=== PATIENT | male | born 1950 | race Caucasian/White ===

== ENCOUNTER 2021-12-11 15:55 | Observation (INO) | payer MEDICARE, BC ==
[2021-12-11] MEDS ORDERED: ASPIRIN 81 MG PO STA (16:02)
--- NOTE | 2021-12-11 16:15 | ED ---
General Adult HPI - General Chief complaint: Shortness of Breath Stated complaint: SOB Time Seen by Provider: 12/11/21 15:57 Source: patient, EMS, RN notes reviewed Mode of arrival: EMS Limitations: no limitations - History of Present Illness Initial comments: Patient is a pleasant 71-year-old male presenting to the emergency department with difficulty breathing. Patient is a poor historian. Patient does have history of COPD. Patient has had increased dyspnea over the past several days. Patient did test +2 days ago for COVID-19 infection. Patient has mild cough. Dyspnea does worsen with exertion. No leg pain or leg swelling. No chest pain. EMS did find patient in a flutter with a heart rate of 192 in route. Patient denies any history of arrhythmia. - Related Data Allergies Allergy/AdvReac Type Severity Reaction Status Date / Time fentanyl AdvReac Itching Verified 12/11/21 16:05 Review of Systems ROS Statement: Those systems with pertinent positive or pertinent negative responses have been documented in the HPI. ROS Other: All systems not noted in ROS Statement are negative. Constitutional: Reports: chills Eyes: Denies: eye pain ENT: Denies: ear pain Respiratory: Reports: cough, dyspnea Cardiovascular: Denies: chest pain Endocrine: Reports: fatigue Gastrointestinal: Reports: diarrhea. Denies: abdominal pain Genitourinary: Denies: dysuria Musculoskeletal: Denies: back pain Skin: Denies: rash Neurological: Denies: weakness Past Medical History Past Medical History: COPD, Diabetes Mellitus, Hyperlipidemia, Hypertension Past Surgical History: Unable to Obtain Smoking Status: Former smoker Past Alcohol Use History: Occasional Past Drug Use History: None Reported General Exam Limitations: no limitations General appearance: alert, in no apparent distress Head exam: Present: normocephalic Eye exam: Present: normal appearance Neck exam: Present: normal inspection Respiratory exam: Present: normal lung sounds bilaterally Cardiovascular Exam: Present: regular rate, normal rhythm GI/Abdominal exam: Present: soft. Absent: tenderness Extremities exam: Present: normal inspection. Absent: pedal edema, calf tenderness Neurological exam: Present: alert Psychiatric exam: Present: normal affect, normal mood Skin exam: Present: normal color Course Vital Signs 12/11/21 12/11/21 16:02 16:05 Temperature 97.9 F Pulse Rate 96 Respiratory 22 Rate Blood Pressure 113/53 O2 Sat by Pulse 93 L 95 Oximetry EKG Findings - EKG Comments: EKG Findings:: Sinus rhythm with rate of 89. [place] 155. QRS 90. QT 341. QTc 388. Normal axis. Normal QRS. No acute ST change. Medical Decision Making - Medical Decision Making Charles reevaluated and updated. Case discussed with Dr. Robles, who will admit co vering Dr. Huddleston. Cardiology will be placed on consult for dysrhythmia. Family requests repeat covert test - Lab Data Result diagrams: 12/11/21 16:07 12/11/21 16:07 Lab Results 12/11/21 12/11/21 12/11/21 Range/Units 16:07 16:07 16:07 WBC 7.6 (3.8-10.6) k/uL RBC 4.33 (4.30-5.90) m/uL Hgb 13.3 (13.0-17.5) gm/dL Hct 40.3 (39.0-53.0) % MCV 92.9 (80.0-100.0) fL MCH 30.8 (25.0-35.0) pg MCHC 33.1 (31.0-37.0) g/dL RDW 12.4 (11.5-15.5) % Plt Count 200 (150-450) k/uL MPV 7.7 Neutrophils % 80 % Lymphocytes % 9 % Monocytes % 6 % Eosinophils % 3 % Basophils % 0 % Neutrophils # 6.1 (1.3-7.7) k/uL Lymphocytes # 0.7 L (1.0-4.8) k/uL Monocytes # 0.5 (0-1.0) k/uL Eosinophils # 0.2 (0-0.7) k/uL Basophils # 0.0 (0-0.2) k/uL PT 10.5 (9.0-12.0) sec INR 1.0 (<1.2) APTT 21.3 L (22.0-30.0) sec Sodium 135 L (137-145) mmol/L Potassium 4.6 (3.5-5.1) mmol/L Chloride 105 (98-107) mmol/L Carbon Dioxide 17 L (22-30) mmol/L Anion Gap 13 mmol/L BUN 36 H (9-20) mg/dL Creatinine 1.65 H (0.66-1.25) mg/dL Est GFR (CKD-EPI)AfAm 48 (>60 ml/min/1.73 sqM) Est GFR (CKD-EPI)NonAf 41 (>60 ml/min/1.73 sqM) Glucose 245 H (74-99) mg/dL Plasma Lactic Acid [place] (0.7-2.0) mmol/L Calcium 9.1 (8.4-10.2) mg/dL Magnesium 1.5 L (1.6-2.3) mg/dL Total Bilirubin 0.8 (0.2-1.3) mg/dL AST 22 (17-59) U/L ALT 24 (4-49) U/L Alkaline Phosphatase 80 (38-126) U/L Lactate Dehydrogenase 440 (313-618) U/L Troponin I (0.000-0.034) ng/mL C-Reactive Protein 2.7 H (<1.0) mg/dL Total Protein 5.8 L (6.3-8.2) g/dL Albumin 3.2 L (3.5-5.0) g/dL TSH 0.699 (0.465-4.680) mIU/L Free T4 1.52 (0.78-2.19) ng/dL Free T3 pg/mL 3.8 (2.8-5.3) pg/ml 12/11/21 12/11/21 Range/Units 16:07 16:07 WBC (3.8-10.6) k/uL RBC (4.30-5.90) m/uL Hgb (13.0-17.5) gm/dL Hct (39.0-53.0) % MCV (80.0-100.0) fL MCH (25.0-35.0) pg MCHC (31.0-37.0) g/dL RDW (11.5-15.5) % Plt Count (150-450) k/uL MPV Neutrophils % % Lymphocytes % % Monocytes % % Eosinophils % % Basophils % % Neutrophils # (1.3-7.7) k/uL Lymphocytes # (1.0-4.8) k/uL Monocytes # (0-1.0) k/uL Eosinophils # (0-0.7) k/uL Basophils # (0-0.2) k/uL PT (9.0-12.0) sec INR (<1.2) APTT (22.0-30.0) sec Sodium (137-145) mmol/L Potassium (3.5-5.1) mmol/L Chloride (98-107) mmol/L Carbon Dioxide (22-30) mmol/L Anion Gap mmol/L BUN (9-20) mg/dL Creatinine (0.66-1.25) mg/dL Est GFR (CKD-EPI)AfAm (>60 ml/min/1.73 sqM) Est GFR (CKD-EPI)NonAf (>60 ml/min/1.73 sqM) Glucose (74-99) mg/dL Plasma Lactic Acid [place] 1.9 (0.7-2.0) mmol/L Calcium (8.4-10.2) mg/dL Magnesium (1.6-2.3) mg/dL Total Bilirubin (0.2-1.3) mg/dL AST (17-59) U/L ALT (4-49) U/L Alkaline Phosphatase (38-126) U/L Lactate Dehydrogenase (313-618) U/L Troponin I <0.012 (0.000-0.034) ng/mL C-Reactive Protein (<1.0) mg/dL Total Protein (6.3-8.2) g/dL Albumin (3.5-5.0) g/dL TSH (0.465-4.680) mIU/L Free T4 (0.78-2.19) ng/dL Free T3 pg/mL (2.8-5.3) pg/ml - Radiology Data Radiology results: image reviewed (Chest x-ray shows interstitial prominence) Disposition Clinical Impression: COVID-19, Atrial flutter Disposition: ADMITTED IP TO THIS HOSP Is patient prescribed a controlled substance at d/c from ED?: No Referrals: Mikael eMeks MD [Primary Care Provider] - 1-2 days Time of Disposition: 17:30
[2021-12-11 16:20] LABS: Basophils % (A) 0 %; Eosinophils # (A) 0.2 k/uL (0-0.7); Eosinophils % (A) 3 %; HCT 40.3 % (39.0-53.0); HGB 13.3 gm/dL (13.0-17.5); Lymphocytes # (A) 0.7 k/uL (1.0-4.8); Lymphocytes % (A) 9 %; MCH 30.8 pg (25.0-35.0); MCHC 33.1 g/dL (31.0-37.0); MCV 92.9 fL (80.0-100.0); Mean Platelet Volume 7.7; Monocytes # (A) 0.5 k/uL (0-1.0); Monocytes % (A) 6 %; Neutrophils # (A) 6.1 k/uL (1.3-7.7); Neutrophils % (A) 80 %; Platelet Count 200 k/uL (150-450); RBC 4.33 m/uL (4.30-5.90); RDW 12.4 % (11.5-15.5); WBC 7.6 k/uL (3.8-10.6)
[2021-12-11 16:39] LABS: Albumin 3.2 g/dL (3.5-5.0); C Reactive Protein 2.7 mg/dL (<1.0); Calcium 9.1 mg/dL (8.4-10.2); Magnesium 1.5 mg/dL (1.6-2.3); Potassium 4.6 mmol/L (3.5-5.1); Total Bilirubin 0.8 mg/dL (0.2-1.3); Total Protein 5.8 g/dL (6.3-8.2)
[2021-12-11 16:40] LABS: Partial Thromboplastin Time 21.3 sec (22.0-30.0); Prothrombin Time 10.5 sec (9.0-12.0)
--- NOTE | 2021-12-11 16:42 | XR ---
EXAMINATION TYPE: XR chest 1V portable DATE OF EXAM: 12/11/2021 COMPARISON: NONE HISTORY: Dysrhythmia. TECHNIQUE: 2 AP portable frontal upright views of the chest are obtained. FINDINGS: There are increased interstitial markings favoring chronic parenchymal changes bilaterally . No suspicious focal consolidation, pleural effusion, or pneumothorax seen. The cardiac silhouette s ize is within normal limits. The osseous structures are intact. IMPRESSION: Interstitial prominence bilaterally favoring mild to moderate chronic parenchymal fibros is. No suspicious acute consolidation.
[2021-12-11] MEDS ORDERED: MAGNESIUM OXIDE 400 MG TAB PO STA (16:45)
[2021-12-11 16:53] LABS: T4, Free (Free Thyroxine) 1.52 ng/dL (0.78-2.19)
[2021-12-11] MEDS ORDERED: NALOXONE 0.4 MG/ML 1 ML VIAL IV PRN (17:34)
[2021-12-11] MEDS ORDERED: SODIUM CHLORIDE 0.9% 1,000 ML IV STA (17:40)
[2021-12-11] MEDS: CHOLECALCIFEROL 125 MCG (5000 IU) TABLET PO SCH (17:52)
[2021-12-11] MEDS: ZINC SULFATE 220 MG CAP PO SCH (17:52)
[2021-12-11 19:40] LABS: Glucose,Whole Blood 234 mg/dL (70-110)
[2021-12-11] MEDS ORDERED: BACLOFEN 10 MG TAB PO PRN (21:00)
[2021-12-11] MEDS: ASCORBIC ACID 500 MG TAB PO SCH (22:20)
[2021-12-11] MEDS: HYDROcodone/APAP 5-325MG 1 EACH TAB PO PRN (22:20)
[2021-12-11] MEDS: MONTELUKAST 10 MG TAB PO SCH (22:20)
[2021-12-11] MEDS: lisinopriL 20 MG TAB PO SCH (22:20)
[2021-12-11] MEDS: ATORVASTATIN 20 MG TAB PO SCH (22:20)
[2021-12-11] MEDS: INSULIN ASPART (NovoLOG) 100 UNIT/ML VIAL SQ SCH (22:21)
[2021-12-11] MEDS: TAMSULOSIN 0.4 MG CAP.ER.24H PO SCH (22:23)
[2021-12-12] MEDS: ENOXAPARIN 40 MG/0.4 ML SYRINGE SQ SCH ×2 (00:01→08:35)
[2021-12-12] MEDS: methylPREDNISolone SOD SUCCI 125 MG/2 ML VIAL IV SCH ×2 (00:01→08:35)
[2021-12-12 05:52] LABS: Glucose,Whole Blood 298 mg/dL (70-110)
[2021-12-12] MEDS: INSULIN ASPART (NovoLOG) 100 UNIT/ML VIAL SQ SCH ×4 (06:29→21:31)
[2021-12-12] MEDS: ASCORBIC ACID 500 MG TAB PO SCH ×2 (08:35→21:30)
[2021-12-12] MEDS: ZINC SULFATE 220 MG CAP PO SCH (08:35)
[2021-12-12] MEDS: LORATADINE 10 MG TAB PO SCH (08:35)
[2021-12-12] MEDS: CHOLECALCIFEROL 125 MCG (5000 IU) TABLET PO SCH (08:36)
[2021-12-12 11:01] VITALS: BMI 25.4
--- NOTE | 2021-12-12 12:17 | P.CRDCN ---
History of Present Illness Consult date: 12/12/21 History of present illness: Patient is a pleasant 71-year-old male with a known history of COPD and tachycardia. We've been asked to see him for new onset of atrial flutter with RVR. 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 Patient initially presented to the ER with increased shortness of breath, he tested positive for Covid 2 days ago. Patient was brought in by EMS which showed his EKG and atrial flutter with a ventricular rate of 192. Patient has since converted to sinus rhythm with a ventricular rate in the 60s. His troponin was negative 3. chest x-ray showed pulmonary fibrosis. He reports he had a stress test 2 years ago performed by his primary and told everything was good. Will start him on Toprol 25 mg daily L request 5 mg twice a day and discontinue the Lovenox. We'll obtain a 2-D echocardiogram. Review of Systems REVIEW OF SYSTEMS At the time of my exam: CONSTITUTIONAL: Denies fever or chills. EYES: Negative for vision changes ENT: Negative for hearing loss CARDIOVASCULAR: Denies chest pain, shortness of breath, diaphoresis, orthopnea, PND or palpitations. VASCULAR: Denies edema RESPIRATORY: Complains of shortness of breath. Denies cough. GASTROINTESTINAL: Denies abdominal pain, diarrhea, constipation, nausea or vomiting. MUSCULOSKELETAL: Denies myalgias. NEUROLOGIC: Denies numbness, tingling, headache or weakness. ENDOCRINE: Denies fatigue, weight change, polydipsia or polyurina. GENITOURINARY: Denies burning, hematuria or urgency with micturation. HEMATOLOGIC: Denies history of anemia or bleeding. DERMATOLOGY: Denies rash or skin sores PSYCH: Negative for depression or hallucinations. Past Medical History Past Medical History: COPD, Diabetes Mellitus, Hyperlipidemia, Hypertension History of Any Multi-Drug Resistant Organisms: None Reported Past Surgical History: Back Surgery, Orthopedic Surgery Past Anesthesia/Blood Transfusion Reactions: No Reported Reaction Smoking Status: Former smoker Past Alcohol Use History: Occasional Past Drug Use History: None Reported - Past Family History Father Family Medical History: Diabetes Mellitus Mother Family Medical History: Diabetes Mellitus Medications and Allergies Home Medications Medication Instructions Recorded Confirmed Type Atorvastatin [Lipitor] 20 mg PO HS 12/11/21 12/11/21 History Baclofen [Lioresal] 10 mg PO HS PRN 12/11/21 12/11/21 History Fluconazole [Diflucan] 100 mg PO DAILY 12/11/21 12/11/21 History Loratadine [Claritin] 10 mg PO DAILY 12/11/21 12/11/21 History Montelukast [Singulair] 10 mg PO HS 12/11/21 12/11/21 History Naproxen Sodium [Aleve] 220 mg PO BID PRN 12/11/21 12/11/21 History Nystatin 100,000 Unit/ml Susp 10 ml PO QID 12/11/21 12/11/21 History [Mycostatin Oral Susp] Tamsulosin [Flomax] 0.4 mg PO HS 12/11/21 12/11/21 History Umeclidinium Brm/Vilanterol Tr 1 puff INHALATION RT-DAILY 12/11/21 12/11/21 History [Anoro Ellipta 62.5-25 Mcg INH] lisinopriL [Zestril] 20 mg PO HS 12/11/21 12/11/21 History metFORMIN HCL [Glucophage] 500 mg PO HS 12/11/21 12/11/21 History Allergies Allergy/AdvReac Type Severity Reaction Status Date / Time fentanyl AdvReac Itching Verified 12/11/21 17:54 Physical Exam Vitals: Vital Signs Temp Pulse Pulse Resp BP BP Pulse Ox 12/12/21 04:00 97.6 F 55 L 18 122/57 96 12/12/21 02:00 18 12/12/21 00:00 97.7 F 61 18 113/56 98 12/11/21 22:00 97.2 F L 63 16 124/60 95 12/11/21 20:00 63 16 12/11/21 17:05 98.8 F 98 20 132/78 96 12/11/21 16:05 95 12/11/21 16:02 97.9 F 96 22 113/53 93 L Intake and Output 12/11/21 12/12/21 12/12/21 22:59 06:59 14:59 Intake Total 118 Balance 118 Intake: Oral 118 Other: Voiding Method Toilet Toilet # Voids 4 Weight 83.007 kg 85 kg PHYSICAL EXAMINATION VITAL SIGNS: Reviewed General: The patient is awake and alert, in no distress, and does not appear acutely ill. Skin: Skin is warm and dry and no rashes or lesions are noted. Eye: Pupils are equal, round and reactive to light, extra-ocular movements are intact; there is normal conjunctiva bilaterally. Ears, nose, mouth and throat: There are moist mucous membranes and no oral lesions. Neck: The neck is supple, there is no tenderness or JVD. Cardiovascular: There is irregular regular rate and rhythm. No murmur, rub or gallop is appreciated. Respiratory: Lungs are clear to auscultation, respirations are non-labored, breath sounds are equal. Gastrointestinal: Soft, non-distended, non-tender abdomen without masses or organomegaly noted. There is no rebound or guarding present. Bowel sounds are unremarkable. Back: There is no tenderness to palpation in the midline. There is no obvious deformity. Musculoskeletal: Normal ROM, no tenderness, There is no pedal edema. There is no calf tenderness or swelling. Extremities: Mild bilateral pitting edema Vascular: Femoral pulse is normal. Posterior tibial pulses are normal .Dorsalis pedis is palpable. Neurological: CN II-XII intact. There are no obvious motor or sensory deficits. Speech is normal. Psychiatric: Cooperative, appropriate mood & affect, normal judgment Results 12/11/21 16:07 12/11/21 16:07 Cardiac Enzymes 12/11/21 12/11/21 12/11/21 Range/Units 16:07 16:07 19:31 AST 22 (17-59) U/L Lactate Dehydrogenase 440 (313-618) U/L Troponin I <0.012 0.016 (0.000-0.034) ng/mL 12/11/21 Range/Units 21:35 AST (17-59) U/L Lactate Dehydrogenase (313-618) U/L Troponin I 0.019 (0.000-0.034) ng/mL Coagulation 12/11/21 Range/Units 16:07 PT 10.5 (9.0-12.0) sec APTT 21.3 L (22.0-30.0) sec CBC 12/11/21 Range/Units 16:07 WBC 7.6 (3.8-10.6) k/uL RBC 4.33 (4.30-5.90) m/uL Hgb 13.3 (13.0-17.5) gm/dL Hct 40.3 (39.0-53.0) % Plt Count 200 (150-450) k/uL Comprehensive Metabolic Panel 12/11/21 Range/Units 16:07 Sodium 135 L (137-145) mmol/L Potassium 4.6 (3.5-5.1) mmol/L Chloride 105 (98-107) mmol/L Carbon Dioxide 17 L (22-30) mmol/L BUN 36 H (9-20) mg/dL Creatinine 1.65 H (0.66-1.25) mg/dL Glucose 245 H (74-99) mg/dL Calcium 9.1 (8.4-10.2) mg/dL AST 22 (17-59) U/L ALT 24 (4-49) U/L Alkaline Phosphatase 80 (38-126) U/L Total Protein 5.8 L (6.3-8.2) g/dL Albumin 3.2 L (3.5-5.0) g/dL Current Medications Generic Name Dose Route Start Last Admin Trade Name Freq PRN Reason Stop Dose Admin Hydrocodone Bitart/Acetaminophen 1 each 12/11/21 20:39 12/11/21 22:20 Hydrocodone/Apap 5-325mg 1 Each Tab PO 1 each Q6HR PRN Administration Pain Ascorbic Acid 500 mg 12/11/21 21:00 12/12/21 08:35 Ascorbic Acid 500 Mg Tab PO 500 mg BID LISA Administration Atorvastatin Calcium 20 mg 12/11/21 21:00 12/11/21 22:20 Atorvastatin 20 Mg Tab PO 20 mg HS LISA Administration Baclofen 10 mg 12/11/21 21:00 Baclofen 10 Mg Tab PO HS PRN Muscle Spasm Cholecalciferol 125 mcg 12/11/21 17:45 12/12/21 08:36 Cholecalciferol 125 Mcg (5000 Iu) Tablet PO 125 mcg DAILY LISA Administration Enoxaparin Sodium 40 mg 12/11/21 22:45 12/12/21 08:35 Enoxaparin 40 Mg/0.4 Ml Syringe SQ 40 mg DAILY LISA Administration Insulin Aspart 0 unit 12/11/21 21:00 12/12/21 06:29 Insulin Aspart (Novolog) 100 Unit/Ml Vial SQ 6 unit ACHS LISA Administration Protocol Lisinopril 20 mg 12/11/21 21:00 12/11/21 22:20 Lisinopril 20 Mg Tab PO 20 mg HS LISA Administration Loratadine 10 mg 10/01/22 09:00 12/12/21 08:35 Loratadine 10 Mg Tab PO 10 mg DAILY LISA Administration Methylprednisolone Sodium Succinate 60 mg 12/11/21 22:33 12/12/21 08:35 Methylprednisolone Sod Succi 125 Mg/2 Ml Vial IV 60 mg DAILY LISA Administration Montelukast Sodium 10 mg 12/11/21 21:00 12/11/21 22:20 Montelukast 10 Mg Tab PO 10 mg HS LISA Administration Naloxone HCl 0.2 mg 12/11/21 17:34 Naloxone 0.4 Mg/Ml 1 Ml Vial IV Q2M PRN Opioid Reversal Tamsulosin HCl 0.4 mg 12/11/21 21:00 12/11/21 22:23 Tamsulosin 0.4 Mg Cap.Er.24h PO 0.4 mg HS LISA Administration Zinc Sulfate 220 mg 12/11/21 17:45 12/12/21 08:35 Zinc Sulfate 220 Mg Cap PO 220 mg DAILY LISA Administration Intake and Output 12/11/21 12/12/21 12/12/21 22:59 06:59 14:59 Intake Total 118 Balance 118 Intake: Oral 118 Other: Voiding Method Toilet Toilet # Voids 4 Weight 83.007 kg 85 kg 12/11/21 16:07 12/11/21 16:07 Assessment and Plan Assessment: New-onset atrial flutter with RVR Positive for Covid 19 History of tachycardia Plan: Will start Toprol 25 mg daily Will start a request for anticoagulation Will obtain a 2-D echocardiogram Continue with telemetry monitoring Further recommendations based on clinical course The above impression and plan of care have been discussed and directed by the signing physician. Any Comer, nurse practitioner, acting as scribe for signing physician.
[2021-12-12 12:20] LABS: Glucose,Whole Blood 470 mg/dL (70-110)
[2021-12-12] MEDS: MAGNESIUM SULFATE-D5W PMX 1 GM in DEXTROSE/WATER 1 100ML.BAG IVPB SCH ×2 (12:33→14:07)
[2021-12-12] MEDS: INSULIN DETEMIR (LEVEMIR) 100 UNIT/ML SYR SQ SCH (12:33)
[2021-12-12] MEDS: APIXABAN 5 MG TAB PO SCH ×2 (12:34→21:31)
[2021-12-12] MEDS: METOPROLOL SUCCINATE (ER) 25 MG TAB.ER.24H PO SCH (12:34)
[2021-12-12 17:02] LABS: Glucose,Whole Blood 354 mg/dL (70-110)
[2021-12-12 19:32] LABS: Glucose,Whole Blood 311 mg/dL (70-110)
[2021-12-12] MEDS ORDERED: methylPREDNISolone SOD SUCCI 125 MG/2 ML VIAL IV SCH (21:00)
[2021-12-12] MEDS ORDERED: ENOXAPARIN 40 MG/0.4 ML SYRINGE SQ SCH (21:00)
[2021-12-12] MEDS: NYSTATIN 100,000 UNIT/ML SUSP 500,000 UNIT/5 ML CUP PO SCH (21:29)
[2021-12-12] MEDS: lisinopriL 20 MG TAB PO SCH (21:29)
[2021-12-12] MEDS: MONTELUKAST 10 MG TAB PO SCH (21:29)
[2021-12-12] MEDS: TAMSULOSIN 0.4 MG CAP.ER.24H PO SCH (21:29)
[2021-12-12] MEDS: HYDROcodone/APAP 5-325MG 1 EACH TAB PO PRN (21:29)
[2021-12-12] MEDS: ATORVASTATIN 20 MG TAB PO SCH (21:30)
--- NOTE | 2021-12-12 23:53 | P.HPIM ---
History of Present Illness H&P Date: 12/12/21 Chief Complaint: Shortness of breath Patient is a 71-year-old male with a known history of hypertension, hyperlipidemia, diabetes type 2 and COPD presents to ER with complaints of shortness of breath and dizziness for the past few days. Patient states that dizziness when trying to get out of bed and otherwise denied any palpitations. Patient states that he was tested positive for COVID-19 about 2 days ago at different hospital facility. Does have cough and congestion. No complaints of leg swelling. No chest pain. Patient was found to be in atrial flutter with heart rate in the 190s as per EMS report. No prior history of arrhythmia no anticoagulation at home. Denies any fever or chills. Currently patient is on room air. Chest x-ray showed interstitial prominence bilaterally favoring mild to moderate chronic parenchymal fibrosis. No suspicious acute consolidation. EKG showed sinus rhythm Laboratory test showed sodium 134 potassium 4.6 chloride 105 bicarb is 17 BUN 36 and creatinine 1.65 Review of Systems Constitutional: Patient denies any fever or chills . no Generalized weakness. Abdomen: Patient denied any nausea or vomiting or abd. pain Cardiovascular: Patient denies any chest pain .short of breath no palpitations. Respiratory: patient denied any cough . no sputum production. shortness of breath Neurologic: Patient denied any numbness or tingling headache. Musculoskeletal: Patient denies any complaints of joint swelling or deformity. Skin: Negative Psychiatric: Negative Endocrine: No heat or cold intolerance. No recent weight gain. Genitourinary: No dysuria or hematuria. All other 14 point ROS negative except the above Past Medical History Past Medical History: COPD, Diabetes Mellitus, Hyperlipidemia, Hypertension History of Any Multi-Drug Resistant Organisms: None Reported Past Surgical History: Back Surgery, Orthopedic Surgery Past Anesthesia/Blood Transfusion Reactions: No Reported Reaction Smoking Status: Former smoker Past Alcohol Use History: Occasional Past Drug Use History: None Reported - Past Family History Father Family Medical History: Diabetes Mellitus Mother Family Medical History: Diabetes Mellitus Medications and Allergies Home Medications Medication Instructions Recorded Confirmed Type Atorvastatin [Lipitor] 20 mg PO HS 12/11/21 12/11/21 History Baclofen [Lioresal] 10 mg PO HS PRN 12/11/21 12/11/21 History Fluconazole [Diflucan] 100 mg PO DAILY 12/11/21 12/11/21 History Loratadine [Claritin] 10 mg PO DAILY 12/11/21 12/11/21 History Montelukast [Singulair] 10 mg PO HS 12/11/21 12/11/21 History Nystatin 100,000 Unit/ml Susp 10 ml PO QID 12/11/21 12/11/21 History [Mycostatin Oral Susp] Tamsulosin [Flomax] 0.4 mg PO HS 12/11/21 12/11/21 History Umeclidinium Brm/Vilanterol Tr 1 puff INHALATION RT-DAILY 12/11/21 12/11/21 History [Anoro Ellipta 62.5-25 Mcg INH] lisinopriL [Zestril] 20 mg PO HS 12/11/21 12/11/21 History metFORMIN HCL [Glucophage] 500 mg PO HS 12/11/21 12/11/21 History Apixaban [Eliquis] 5 mg PO BID #60 tab 12/15/21 Rx Ascorbic Acid [Vitamin C] 500 mg PO BID tab 12/15/21 Rx Cholecalciferol [Vitamin D3 (125 125 mcg PO DAILY tab 12/15/21 Rx Mcg = 5000 Iu)] Metoprolol Succinate (ER) [Toprol 25 mg PO DAILY #30 tab 12/15/21 Rx XL] Zinc Sulfate [Orazinc] 220 mg PO DAILY #30 cap 12/15/21 Rx Allergies Allergy/AdvReac Type Severity Reaction Status Date / Time fentanyl AdvReac Itching Verified 12/11/21 17:54 Physical Exam Vitals: Vital Signs Temp Pulse Pulse Resp BP BP Pulse Ox 12/12/21 08:00 97.9 F 78 18 114/56 98 12/12/21 04:00 97.6 F 55 L 18 122/57 96 12/12/21 02:00 18 12/12/21 00:00 97.7 F 61 18 113/56 98 12/11/21 22:00 97.2 F L 63 16 124/60 95 12/11/21 20:00 63 16 12/11/21 17:05 98.8 F 98 20 132/78 96 12/11/21 16:05 95 12/11/21 16:02 97.9 F 96 22 113/53 93 L Intake and Output 12/11/21 12/12/21 12/12/21 22:59 06:59 14:59 Intake Total 118 Balance 118 Intake: Oral 118 Other: Voiding Method Toilet Toilet Toilet # Voids 4 1 Weight 83.007 kg 85 kg 85 kg PHYSICAL EXAMINATION: Patient is lying in the bed comfortably, no acute distress, awake alert and oriented.. HEENT: Normocephalic. Neck is supple. Pupils reactive. Nostrils clear. Oral cavity is moist. Neck reveals no JVD, carotid bruits, or thyromegaly. CHEST EXAMINATION: Trachea is central. Symmetrical expansion. Lung pineda clear to auscultation and percussion. CARDIAC: Normal S1, S2 with no gallops. No murmurs ABDOMEN: Soft. Bowel sounds present. Nontender. No organomegaly. No abdominal bruits. Extremities: reveal no edema. No clubbing or cyanosis Neurologically awake, alert, oriented x3 with well-coordinated movements. No focal deficits noted Skin: No rash or skin lesions. Psychiatric: Coperative. Nonsuicidal, Musculoskeletal: No joint swelling or deformity. Normal range of motion. Results CBC & Chem 7: 12/15/21 08:52 12/15/21 08:52 Labs: Abnormal Lab Results - Last 24 Hours (Table) 12/11/21 12/11/21 12/11/21 Range/Units 16:07 16:07 16:07 Lymphocytes # 0.7 L (1.0-4.8) k/uL APTT 21.3 L (22.0-30.0) sec Sodium 135 L (137-145) mmol/L Carbon Dioxide 17 L (22-30) mmol/L BUN 36 H (9-20) mg/dL Creatinine 1.65 H (0.66-1.25) mg/dL Glucose 245 H (74-99) mg/dL POC Glucose (mg/dL) (70-110) mg/dL Magnesium 1.5 L (1.6-2.3) mg/dL Ferritin 547.0 H (22.0-322.0) ng/mL C-Reactive Protein 2.7 H (<1.0) mg/dL Total Protein 5.8 L (6.3-8.2) g/dL Albumin 3.2 L (3.5-5.0) g/dL 09/30/22 10/01/22 Range/Units 19:37 05:46 Lymphocytes # (1.0-4.8) k/uL APTT (22.0-30.0) sec Sodium (137-145) mmol/L Carbon Dioxide (22-30) mmol/L BUN (9-20) mg/dL Creatinine (0.66-1.25) mg/dL Glucose (74-99) mg/dL POC Glucose (mg/dL) 234 H 298 H (70-110) mg/dL Magnesium (1.6-2.3) mg/dL Ferritin (22.0-322.0) ng/mL C-Reactive Protein (<1.0) mg/dL Total Protein (6.3-8.2) g/dL Albumin (3.5-5.0) g/dL Thrombosis Risk Factor Assmnt - DVT/VTE Prophylaxis DVT/VTE Prophylaxis: Pharmacologic Prophylaxis ordered - Choose All That Apply Other Risk Factors: Yes Each Risk Factor Represents 2 Points: Age 61-74 years Thrombosis Risk Factor Assessment Total Risk Factor Score: 2 Thrombosis Risk Factor Assessment Level: Low Risk Assessment and Plan Assessment: New onset atrial flutter with RVR. Acute COVID-19 infection. Patient was tested +2 days ago at outside hospital facility. Rapid test negative. Follow-up PCR. Acute kidney injury likely prerenal. Hypovolemic hyponatremia Hypomagnesemia replaced. Hyperlipidemia Hypertension COPD/pulmonary fibrosis Hyperglycemia Prior history of smoking DVT prophylaxis. Currently on full anticoagulation Plan: Patient will be continued on telemetry monitoring. Started on Toprol-XL and anticoagulation with Eliquis as per cardiology recommendations. Cardiology is on board. Patient will be continued on methylprednisolone and oxygen supplementation. Follow-up COVID-19 PCR test. Since sliding scale and Levemir titrate dose as needed. Prognosis guarded at this time. Time with Patient: Greater than 30
[2021-12-13] MEDS ORDERED: INSULIN DETEMIR (LEVEMIR) 100 UNIT/ML SYR SQ ONE
[2021-12-13 05:41] LABS: Glucose,Whole Blood 152 mg/dL (70-110)
[2021-12-13 06:22] LABS: Basophils % (A) 0 %; Eosinophils % (A) 0 %; HCT 37.6 % (39.0-53.0); HGB 12.6 gm/dL (13.0-17.5); Lymphocytes # (A) 0.7 k/uL (1.0-4.8); Lymphocytes % (A) 5 %; MCH 31.6 pg (25.0-35.0); MCHC 33.6 g/dL (31.0-37.0); MCV 93.9 fL (80.0-100.0); Mean Platelet Volume 7.6; Monocytes # (A) 0.6 k/uL (0-1.0); Monocytes % (A) 4 %; Neutrophils # (A) 11.6 k/uL (1.3-7.7); Neutrophils % (A) 89 %; Platelet Count 255 k/uL (150-450); RDW 12.3 % (11.5-15.5); WBC 13.1 k/uL (3.8-10.6)
[2021-12-13 06:34] LABS: C Reactive Protein 1.5 mg/dL (<1.0); Calcium 9.5 mg/dL (8.4-10.2); Potassium 5.1 mmol/L (3.5-5.1)
[2021-12-13] MEDS: INSULIN ASPART (NovoLOG) 100 UNIT/ML VIAL SQ SCH ×4 (06:53→20:51)
[2021-12-13] MEDS: INSULIN DETEMIR (LEVEMIR) 100 UNIT/ML SYR SQ SCH (07:25)
[2021-12-13] MEDS: APIXABAN 5 MG TAB PO SCH ×2 (09:31→20:50)
[2021-12-13] MEDS: METOPROLOL SUCCINATE (ER) 25 MG TAB.ER.24H PO SCH (09:31)
[2021-12-13] MEDS: CHOLECALCIFEROL 125 MCG (5000 IU) TABLET PO SCH (09:31)
[2021-12-13] MEDS: FLUCONAZOLE 100 MG TAB PO SCH (09:31)
[2021-12-13] MEDS: LORATADINE 10 MG TAB PO SCH (09:31)
[2021-12-13] MEDS: ZINC SULFATE 220 MG CAP PO SCH (09:31)
[2021-12-13] MEDS: methylPREDNISolone SOD SUCCI 125 MG/2 ML VIAL IV SCH (09:31)
[2021-12-13] MEDS: ASCORBIC ACID 500 MG TAB PO SCH ×2 (09:31→20:50)
[2021-12-13] MEDS: NYSTATIN 100,000 UNIT/ML SUSP 500,000 UNIT/5 ML CUP PO SCH ×4 (09:32→20:50)
--- NOTE | 2021-12-13 11:46 | P.PN ---
Subjective Progress Note Date: 12/13/21 Patient seen resting comfortably on the bedside in no signs of acute distress. He denies increased shortness of breath or chest pain. He remains sinus rhythm on the monitor with a controlled ventricular rate. Echocardiogram ordered. Patient is on eliquis anticoagulation Objective - Vital Signs Vital signs: Vital Signs Temp 97.8 F 12/13/21 08:00 Pulse 56 L 12/13/21 08:00 Resp 18 12/13/21 08:00 BP 104/68 12/13/21 08:00 Pulse Ox 93 L 12/13/21 08:00 FiO2 Intake & Output 12/12/21 12/13/21 12/13/21 18:59 06:59 18:59 Intake Total 1098 550 Balance 1098 550 Weight 85 kg Intake: Intake, IV Titration 200 0 Amount Magnesium Sulfate-D5w Pmx 200 0 1 gm In Dextrose/Water 1 100ml.bag @ 100 mls/hr IVPB Q1H [facility] Rx#: [id number] Sodium Chloride 0.9% 1, 0 000 ml @ 75 mls/hr IV . [id number] [facility] Rx#:[id number] Oral 898 550 Other: Voiding Method Toilet # Voids 1 2 - Exam PHYSICAL EXAM: VITAL SIGNS: Reviewed. GENERAL: Well-developed in no acute distress. HEENT: Head is normocephalic. Pupils are equal, round. Sclerae anicteric. Mucous membranes of the mouth are moist. NECK: Supple. No JVD or thyromegaly RESPIRATORY: Respirations even and unlabored. Lungs diminished to auscultation bilaterally. CARDIO: Regular rate and rhythm. S1 and S2 heard. No murmur or gallops. EXTREMITIES: Normal range of motion. No clubbing or cyanosis. Peripheral pulses intact. Negative for bilateral lower extremity edema NEURO: Orientated to person, time, mood is appropriate - Labs CBC & Chem 7: 12/13/21 05:35 12/13/21 05:35 Labs: Abnormal Lab Results - Last 24 Hours (Table) 12/12/21 12/12/21 12/12/21 Range/Units 12:18 17:01 19:30 WBC (3.8-10.6) k/uL RBC (4.30-5.90) m/uL Hgb (13.0-17.5) gm/dL Hct (39.0-53.0) % Neutrophils # (1.3-7.7) k/uL Lymphocytes # (1.0-4.8) k/uL Sodium (137-145) mmol/L BUN (9-20) mg/dL Glucose (74-99) mg/dL POC Glucose (mg/dL) 470 H 354 H 311 H (70-110) mg/dL Hemoglobin A1c (0.0-6.0) % C-Reactive Protein (<1.0) mg/dL 12/13/21 12/13/21 12/13/21 Range/Units 05:35 05:35 05:35 WBC 13.1 H (3.8-10.6) k/uL RBC 4.00 L (4.30-5.90) m/uL Hgb 12.6 L (13.0-17.5) gm/dL Hct 37.6 L (39.0-53.0) % Neutrophils # 11.6 H (1.3-7.7) k/uL Lymphocytes # 0.7 L (1.0-4.8) k/uL Sodium 135 L (137-145) mmol/L BUN 44 H (9-20) mg/dL Glucose 139 H (74-99) mg/dL POC Glucose (mg/dL) (70-110) mg/dL Hemoglobin A1c 8.5 H (0.0-6.0) % C-Reactive Protein 1.5 H (<1.0) mg/dL 12/13/21 Range/Units 05:39 WBC (3.8-10.6) k/uL RBC (4.30-5.90) m/uL Hgb (13.0-17.5) gm/dL Hct (39.0-53.0) % Neutrophils # (1.3-7.7) k/uL Lymphocytes # (1.0-4.8) k/uL Sodium (137-145) mmol/L BUN (9-20) mg/dL Glucose (74-99) mg/dL POC Glucose (mg/dL) 152 H (70-110) mg/dL Hemoglobin A1c (0.0-6.0) % C-Reactive Protein (<1.0) mg/dL Assessment and Plan Assessment: New-onset atrial flutter with RVR Positive for Covid 19 History of tachycardia Plan: Continue Toprol 25 mg daily Conros[place] Eliquis for anticoagulation Will obtain a 2-D echocardiogram Continue with telemetry monitoring Further recommendations based on clinical course The above impression and plan of care have been discussed and directed by the [facility] physician. Any Comer, nurse practitioner, acting as scribe for signing physician.
[2021-12-13 12:21] LABS: Glucose,Whole Blood 206 mg/dL (70-110)
[2021-12-13 16:50] LABS: Glucose,Whole Blood 296 mg/dL (70-110)
[2021-12-13 19:32] LABS: Glucose,Whole Blood 334 mg/dL (70-110)
[2021-12-13] MEDS: lisinopriL 20 MG TAB PO SCH (20:50)
[2021-12-13] MEDS: ATORVASTATIN 20 MG TAB PO SCH (20:50)
[2021-12-13] MEDS: MONTELUKAST 10 MG TAB PO SCH (20:50)
[2021-12-13] MEDS: TAMSULOSIN 0.4 MG CAP.ER.24H PO SCH (20:50)
[2021-12-14 06:03] LABS: Glucose,Whole Blood 180 mg/dL (70-110)
[2021-12-14] MEDS: INSULIN ASPART (NovoLOG) 100 UNIT/ML VIAL SQ SCH ×4 (06:46→20:46)
[2021-12-14] MEDS: INSULIN DETEMIR (LEVEMIR) 100 UNIT/ML SYR SQ SCH (06:47)
[2021-12-14] MEDS: NYSTATIN 100,000 UNIT/ML SUSP 500,000 UNIT/5 ML CUP PO SCH ×4 (09:29→20:46)
[2021-12-14] MEDS: ASCORBIC ACID 500 MG TAB PO SCH ×2 (09:30→20:47)
[2021-12-14] MEDS: CHOLECALCIFEROL 125 MCG (5000 IU) TABLET PO SCH (09:30)
[2021-12-14] MEDS: METOPROLOL SUCCINATE (ER) 25 MG TAB.ER.24H PO SCH (09:30)
[2021-12-14] MEDS: LORATADINE 10 MG TAB PO SCH (09:30)
[2021-12-14] MEDS: APIXABAN 5 MG TAB PO SCH ×2 (09:30→20:49)
[2021-12-14] MEDS: FLUCONAZOLE 100 MG TAB PO SCH (09:30)
[2021-12-14] MEDS: methylPREDNISolone SOD SUCCI 125 MG/2 ML VIAL IV SCH (09:30)
[2021-12-14] MEDS: ZINC SULFATE 220 MG CAP PO SCH (09:30)
--- NOTE | 2021-12-14 10:36 | CA ---
Transthoracic Echo Report Name: Collins Manrique Age: 71 Gender: M : 1950 Exam Date: 12/14/2021 08:34 Exam Location: [place] [facility] Ht (in): 72 Wt (lb): 187 Ordering Physician: Any Comer Attending/Referring Phys: Iron Assorter Patsy Steele RDCS Procedure CPT: Indications: a flutter, covid Cardiac Hx: Technical Quality: Fair Contrast 1: Total Dose (mL): Contrast 2: Total Dose (mL): MEASUREMENTS (Male / Female) Normal Values 2D ECHO LV Diastolic Diameter PLAX 4.7 cm 4.2 - 5.9 / 3.9 - 5.3 cm LV Systolic Diameter PLAX 2.6 cm IVS Diastolic Thickness 1.1 cm 0.6 - 1.0 / 0.6 - 0.9 cm LVPW Diastolic Thickness 1.3 cm 0.6 - 1.0 / 0.6 - 0.9 cm LV Relative Wall Thickness 0.5 RV Internal Dim ED PLAX 3.1 cm LA Systolic Diameter LX 3.1 cm 3.0 - 4.0 / 2.7 - 3.8 cm LA Volume 41.4 cm??? 18 - 58 / 22 - 52 cm??? M-MODE IVS Diastolic Thickness MM 3.0 cm 0.6 - 1.0 / 0.6 - 0.9 cm Aortic Root Diameter MM 3.0 cm MV E Point Septal Separation 1.3 cm AV Cusp Separation MM 1.6 cm DOPPLER AV Peak Velocity 157.7 cm/s AV Peak Gradient 10.0 mmHg MV Area PHT 3.3 cm??? Mitral E Point Velocity 98.8 cm/s Mitral A Point Velocity 62.1 cm/s Mitral E to A Ratio 1.6 MV Deceleration Time 232.2 ms MV E' Velocity 11.1 cm/s Mitral E to MV E' Ratio 8.9 TR Peak Velocity 246.9 cm/s TR Peak Gradient 24.4 mmHg Right Ventricular Systolic Press 28.9 mmHg FINDINGS Left Ventricle Left ventricular ejection fraction is estimated at 55-60 %. Left ventricular cavity size normal. Mild concentric left ventricular hypertrophy. Right Ventricle Normal right ventricular size and function. Right ventricular systolic pressure within normal limits. Right Atrium Normal right atrial size. Left Atrium Normal left atrial size. No evidence for an atrial septal defect. Mitral Valve Structurally normal mitral valve. No mitral stenosis, or prolapse. Mild mitral regurgitation Aortic Valve Trileaflet aortic valve. No aortic valve stenosis or regurgitation.aortic valve sclerosis. Tricuspid Valve Mild tricuspid regurgitation.structurally normal tricuspid valve. Pulmonic Valve Structurally normal pulmonic valve. Pericardium Normal pericardium. No pericardial effusion. Aorta Normal size aortic root and proximal ascending aorta. CONCLUSIONS 1. Normal left ventricle size and systolic function 2. Mild mitral and tricuspid regurgitation 3. No pericardial effusion Previewed by: Dr. Rao Lambert MD (Electronically Signed) Final Date: 14 December 2021 10:35
[2021-12-14 11:39] LABS: Glucose,Whole Blood 199 mg/dL (70-110)
--- NOTE | 2021-12-14 12:05 | P.PN ---
Subjective Progress Note Date: 12/13/21 Patient is a 71-year-old male with a known history of hypertension, hyperlipidemia, diabetes type 2 and COPD presents to ER with complaints of shortness of breath and dizziness for the past few days. Patient states that dizziness when trying to get out of bed and otherwise denied any palpitations. Patient states that he was tested positive for COVID-19 about 2 days ago at different hospital facility. Does have cough and congestion. No complaints of leg swelling. No chest pain. Patient was found to be in atrial flutter with heart rate in the 190s as per EMS report. No prior history of arrhythmia no anticoagulation at home. Denies any fever or chills. Currently patient is on room air. Chest x-ray showed interstitial prominence bilaterally favoring mild to moderate chronic parenchymal fibrosis. No suspicious acute consolidation. EKG showed sinus rhythm Laboratory test showed sodium 134 potassium 4.6 chloride 105 bicarb is 17 BUN 36 and creatinine 1.65 12/13/2021 Patient is currently sitting on the side of the bed. Awake alert and oriented 3. Denied any complaints of chest pain or worsening shortness of breath. Patient is requiring 2-3 L of oxygen via nasal cannula and is being titrated down to room air. Patient is being continued on DuoNeb's and IV Solu-Medrol. Otherwise patient remains in sinus rhythm. Started on anticoagulation for atrial flutter and 2-D echo Cardizem was done. Denied any complaints of nausea vomiting or abdominal pain or diarrhea. Covid PCR test is pending. Laboratory data showed WBC 13.1 hemoglobin 12.6 and platelets 255 Sodium 134 potassium 5.1 chloride 101 bicarb is 25 BUN 44 and creatinine 1.2 and blood sugar is 139 LDH 457 and CRP 1.5 Current medications reviewed. Objective - Vital Signs Vital signs: Vital Signs Temp 97.8 F 12/13/21 08:00 Pulse 63 12/13/21 16:00 Resp 18 12/13/21 16:00 BP 114/56 12/13/21 16:00 Pulse Ox 96 12/13/21 16:00 FiO2 Intake & Output 12/13/21 12/13/21 12/14/21 06:59 18:59 06:59 Intake Total 550 720 Output Total 700 Balance 550 20 Intake: Intake, IV Titration 0 Amount Magnesium Sulfate-D5w Pmx 0 1 gm In Dextrose/Water 1 100ml.bag @ 100 mls/hr IVPB Q1H [facility] Rx#: [id number] Sodium Chloride 0.9% 1, 0 000 ml @ 75 mls/hr IV . [id number] ST[facility] Rx#:[id number] Oral 550 720 Output: Urine 700 Other: # Voids 2 - Exam PHYSICAL EXAMINATION: Patient is lying in the bed comfortably, no acute distress, awake alert and oriented.. HEENT: Normocephalic. Neck is supple. Pupils reactive. Nostrils clear. Oral cavity is moist. Neck reveals no JVD, carotid bruits, or thyromegaly. CHEST EXAMINATION: Trachea is central. Symmetrical expansion. Bilateral prolonged expiration. Nonlabored breathing. CARDIAC: Normal S1, S2 with no gallops. No murmurs ABDOMEN: Soft. Bowel sounds normal. No organomegaly. No abdominal bruits. Extremities: reveal no edema. No clubbing or cyanosis Neurologically awake, alert, oriented x3 with well-coordinated movements. No focal deficits noted Skin: No rash or skin lesions. Psychiatric: Coperative. Nonsuicidal Musculoskeletal: No joint swelling or deformity. Normal range of motion. - Labs CBC & Chem 7: 12/13/21 05:35 12/13/21 05:35 Labs: Abnormal Lab Results - Last 24 Hours (Table) 12/13/21 12/13/21 12/13/21 Range/Units 05:35 05:35 05:35 WBC 13.1 H (3.8-10.6) k/uL RBC 4.00 L (4.30-5.90) m/uL Hgb 12.6 L (13.0-17.5) gm/dL Hct 37.6 L (39.0-53.0) % Neutrophils # 11.6 H (1.3-7.7) k/uL Lymphocytes # 0.7 L (1.0-4.8) k/uL Sodium 135 L (137-145) mmol/L BUN 44 H (9-20) mg/dL Glucose 139 H (74-99) mg/dL POC Glucose (mg/dL) (70-110) mg/dL Hemoglobin A1c 8.5 H (0.0-6.0) % C-Reactive Protein 1.5 H (<1.0) mg/dL 12/13/21 12/13/21 12/13/21 Range/Units 05:39 12:17 16:48 WBC (3.8-10.6) k/uL RBC (4.30-5.90) m/uL Hgb (13.0-17.5) gm/dL Hct (39.0-53.0) % Neutrophils # (1.3-7.7) k/uL Lymphocytes # (1.0-4.8) k/uL Sodium (137-145) mmol/L BUN (9-20) mg/dL Glucose (74-99) mg/dL POC Glucose (mg/dL) 152 H 206 H 296 H (70-110) mg/dL Hemoglobin A1c (0.0-6.0) % C-Reactive Protein (<1.0) mg/dL 12/13/21 Range/Units 19:30 WBC (3.8-10.6) k/uL RBC (4.30-5.90) m/uL Hgb (13.0-17.5) gm/dL Hct (39.0-53.0) % Neutrophils # (1.3-7.7) k/uL Lymphocytes # (1.0-4.8) k/uL Sodium (137-145) mmol/L BUN (9-20) mg/dL Glucose (74-99) mg/dL POC Glucose (mg/dL) 334 H (70-110) mg/dL Hemoglobin A1c (0.0-6.0) % C-Reactive Protein (<1.0) mg/dL Assessment and Plan Assessment: New onset atrial flutter with RVR. Acute COVID-19 infection. Patient was tested +2 days ago at outside hospital facility. Rapid test negative. Follow-up PCR. Acute kidney injury likely prerenal. Improved. Hypovolemic hyponatremia Hypomagnesemia replaced. Hyperlipidemia Hypertension COPD/pulmonary fibrosis Hyperglycemia Prior history of smoking DVT prophylaxis. Currently on full anticoagulation Plan: Patient will be continued on telemetry monitoring. Started on Toprol-XL and anticoagulation with Eliquis as per cardiology recommendations. Cardiology is on board. Patient will be continued on methylprednisolone and oxygen supplementation. Follow-up COVID-19 PCR test. Since sliding scale and Levemir titrate dose as needed. Prognosis guarded at this time. Time with Patient: Greater than 30
[2021-12-14] MEDS: predniSONE 10 MG TAB PO SCH (12:39)
[2021-12-14 16:28] LABS: Glucose,Whole Blood 353 mg/dL (70-110)
[2021-12-14 19:35] LABS: Glucose,Whole Blood 382 mg/dL (70-110)
[2021-12-14] MEDS: lisinopriL 20 MG TAB PO SCH (20:47)
[2021-12-14] MEDS: MONTELUKAST 10 MG TAB PO SCH (20:47)
[2021-12-14] MEDS: TAMSULOSIN 0.4 MG CAP.ER.24H PO SCH (20:49)
[2021-12-14] MEDS: ATORVASTATIN 20 MG TAB PO SCH (20:53)
[2021-12-15 05:09] VITALS: TEMP 97.6
[2021-12-15 05:38] LABS: Glucose,Whole Blood 197 mg/dL (70-110)
[2021-12-15] MEDS: INSULIN ASPART (NovoLOG) 100 UNIT/ML VIAL SQ SCH (06:51)
[2021-12-15] MEDS: INSULIN DETEMIR (LEVEMIR) 100 UNIT/ML SYR SQ SCH (06:52)
[2021-12-15] MEDS: LORATADINE 10 MG TAB PO SCH (09:56)
[2021-12-15] MEDS: NYSTATIN 100,000 UNIT/ML SUSP 500,000 UNIT/5 ML CUP PO SCH (09:56)
[2021-12-15] MEDS: METOPROLOL SUCCINATE (ER) 25 MG TAB.ER.24H PO SCH (09:56)
[2021-12-15] MEDS: predniSONE 10 MG TAB PO SCH (09:56)
[2021-12-15] MEDS: CHOLECALCIFEROL 125 MCG (5000 IU) TABLET PO SCH (09:56)
[2021-12-15] MEDS: APIXABAN 5 MG TAB PO SCH (09:57)
[2021-12-15] MEDS: FLUCONAZOLE 100 MG TAB PO SCH (09:57)
[2021-12-15] MEDS: ASCORBIC ACID 500 MG TAB PO SCH (09:57)
[2021-12-15] MEDS: ZINC SULFATE 220 MG CAP PO SCH (09:57)
[2021-12-15 10:39] LABS: Basophils % (A) 0 %; Eosinophils % (A) 0 %; HCT 44.9 % (39.0-53.0); HGB 15.2 gm/dL (13.0-17.5); Lymphocytes # (A) 1.1 k/uL (1.0-4.8); Lymphocytes % (A) 7 %; MCH 31.7 pg (25.0-35.0); MCHC 33.8 g/dL (31.0-37.0); MCV 93.8 fL (80.0-100.0); Mean Platelet Volume 8.5; Monocytes # (A) 0.8 k/uL (0-1.0); Monocytes % (A) 5 %; Neutrophils # (A) 14.1 k/uL (1.3-7.7); Neutrophils % (A) 87 %; Platelet Count 302 k/uL (150-450); RBC 4.79 m/uL (4.30-5.90); RDW 12.5 % (11.5-15.5); WBC 16.2 k/uL (3.8-10.6)
[2021-12-15 10:51] LABS: Potassium 4.7 mmol/L (3.5-5.1)
[2021-12-15 10:53] VITALS: BP 120/72; PULSE 71; RESP 16
--- NOTE | 2021-12-15 15:37 | P.PN ---
Subjective Progress Note Date: 12/14/21 This is a 71-year-old gentleman admitted with new onset atrial flutter with RVR, prior COVID-19 infection, positive inflammatory markers and multiple other medical issues. Evaluated by cardiology with recommendations noted. 2-D echo completed, results pending. Sitting up at bedside, denies chest pain, p alpitations. Reports exertional shortness of breath. Objective - Vital Signs Vital signs: Vital Signs Temp 97.0 F L 12/14/21 08:00 Pulse 70 12/14/21 16:00 Resp 18 12/14/21 14:00 BP 109/60 12/14/21 16:00 Pulse Ox 91 L 12/14/21 16:00 FiO2 Intake & Output 12/13/21 12/14/21 12/14/21 18:59 06:59 18:59 Intake Total 720 200 360 Output Total 700 Balance 20 200 360 Intake: Oral 720 200 360 Output: Urine 700 Other: Voiding Method Toilet # Voids 1 2 - Exam - Exam PHYSICAL EXAMINATION: GENERAL: Sitting up at bedside, alert and oriented 3, NAD. HEENT: Normocephalic. Neck is supple. Pupils reactive. MMM. Neck: Supple,no JVD, carotid bruits, or thyromegaly. CHEST EXAMINATION: Nonlabored, bilateral air entry, clear to auscultation CARDIAC: Normal S1, S2 with no gallops. No murmurs ABDOMEN: Soft. Nondistended, nontender ,positive Bowel sounds. No organomegaly. Extremities:no edema. No clubbing or cyanosis. Neurological: Cranial nerves II through XII grossly intact, No focal deficits no chente Skin: Warm and dry, No rash - Labs CBC & Chem 7: 12/15/21 08:52 12/15/21 08:52 Labs: Abnormal Lab Results - Last 24 Hours (Table) 12/13/21 12/14/21 12/14/21 Range/Units 19:30 06:01 11:38 POC Glucose (mg/dL) 334 H 180 H 199 H (70-110) mg/dL 12/14/21 Range/Units 16:26 POC Glucose (mg/dL) 353 H (70-110) mg/dL Assessment and Plan Assessment: New onset atrial flutter with RVR probably secondary to prior Covid Recent COVID-19 infection. Acute kidney injury likely prerenal. Improved. Hypovolemic hyponatremia, improved. Hypomagnesemia replaced. Hyperlipidemia Hypertension COPD/pulmonary fibrosis Hyperglycemia Prior history of smoking Plan: Continue on current medication regime ,monitoring and symptomatic treatment. Titrate O2 as tolerated. Maintain steroids, zinc, vitamin D, vitamin C. Anticoagulated on Eliquis. Maintained on beta artem. Echo results pending. Increase ambulation as tolerated with in room. Discharge planning in progress for tomorrow. The impression and plan of care has been dictated as directed. : I performed a history and examination of this patient, discussed the same with the dictator. I agree with the dictator's note ,documented as a scribe. Any additional findings or plans will be noted.
--- NOTE | 2021-12-15 15:42 | P.DS ---
Providers Date of admission: 12/11/21 17:34 Expected date of discharge: 12/15/21 Attending physician: Chayo Robles Consults: 12/11/21 17:34 Consult Physician Routine Consulting Provider: Catalino Howard Consult Reason/Comments: a flutter Do you want consulting provider notified?: Yes Primary care physician: Mikael Meeks MD Hospital Course: Final Diagnoses: New onset atrial flutter with RVR probably secondary to prior Covid Recent COVID-19 infection, negative PCR, positive inflammatory markers. Acute kidney injury likely prerenal. Improved. Hypovolemic hyponatremia, improved. Hypomagnesemia replaced. Hyperlipidemia Hypertension COPD/pulmonary fibrosis Hyperglycemia Prior history of smoking Hospital course:This is a 71-year-old gentleman admitted with new onset atrial flutter with RVR, prior COVID-19 infection, positive inflammatory markers and multiple other medical issues. Evaluated by cardiology with recommendations noted. 2-D echo completed, results pending. Sitting up at bedside, denies chest pain, palpitations. Reports exertional shortness of breath. Echo reported normal LV function. Significant clinical improvement. Denies cough, shortness of breath or chest pain. Denies palpitations. Ambulating in room, tolerating exertion well- Denies exertional shortness of breath-resolved. Cleared by cardiology for discharge. Patient will be discharged home today in a stable condition with guarded prognosis. The impression and plan of care has been dictated as directed. : I performed a history and examination of this patient, discussed the same with the dictator. I agree with the dictator's note ,documented as a scribe. Any additional findings or plans will be noted. Patient Condition at Discharge: Stable Plan - Discharge Summary New Discharge Prescriptions: New Apixaban [Eliquis] 5 mg PO BID #60 tab Zinc Sulfate [Orazinc] 220 mg PO DAILY #30 cap Ascorbic Acid [Vitamin C] 500 mg PO BID tab Cholecalciferol [Vitamin D3 (125 Mcg = 5000 Iu)] 125 mcg PO DAILY tab Metoprolol Succinate (ER) [Toprol XL] 25 mg PO DAILY #30 tab Continue Loratadine [Claritin] 10 mg PO DAILY Montelukast [Singulair] 10 mg PO HS Umeclidinium Brm/Vilanterol Tr [Anoro Ellipta 62.5-25 Mcg INH] 1 puff INHALATION RT-DAILY Nystatin 100,000 Unit/ml Susp [Mycostatin Oral Susp] 10 ml PO QID Fluconazole [Diflucan] 100 mg PO DAILY Atorvastatin [Lipitor] 20 mg PO HS Baclofen [Lioresal] 10 mg PO HS PRN PRN Reason: Muscle Spasm lisinopriL [Zestril] 20 mg PO HS metFORMIN HCL [Glucophage] 500 mg PO HS Tamsulosin [Flomax] 0.4 mg PO HS Discontinued Naproxen Sodium [Aleve] 220 mg PO BID PRN PRN Reason: Pain Discharge Medication List Atorvastatin [Lipitor] 20 mg PO HS 12/11/21 [History] Baclofen [Lioresal] 10 mg PO HS PRN 12/11/21 [History] Fluconazole [Diflucan] 100 mg PO DAILY 12/11/21 [History] Loratadine [Claritin] 10 mg PO DAILY 12/11/21 [History] Montelukast [Singulair] 10 mg PO HS 12/11/21 [History] Nystatin 100,000 Unit/ml Susp [Mycostatin Oral Susp] 10 ml PO QID 12/11/21 [History] Tamsulosin [Flomax] 0.4 mg PO HS 12/11/21 [History] Umeclidinium Brm/Vilanterol Tr [Anoro Ellipta 62.5-25 Mcg INH] 1 puff INHALATION RT-DAILY 12/11/21 [History] lisinopriL [Zestril] 20 mg PO HS 12/11/21 [History] metFORMIN HCL [Glucophage] 500 mg PO HS 12/11/21 [History] Apixaban [Eliquis] 5 mg PO BID #60 tab 12/15/21 [Rx] Ascorbic Acid [Vitamin C] 500 mg PO BID tab 12/15/21 [Rx] Cholecalciferol [Vitamin D3 (125 Mcg = 5000 Iu)] 125 mcg PO DAILY tab 12/15/21 [Rx] Metoprolol Succinate (ER) [Toprol XL] 25 mg PO DAILY #30 tab 12/15/21 [Rx] Zinc Sulfate [Orazinc] 220 mg PO DAILY #30 cap 12/15/21 [Rx] Follow up Appointment(s)/Referral(s): Mikael Meeks MD [Primary Care Provider] - 1-2 days Elio Kent MD [STAFF PHYSICIAN] - 12/24/21 4:30 pm Patient Instructions/Handouts: Coronavirus Disease 2019 (COVID-19), Atrial Flutter (DC) Discharge Disposition: HOME SELF-CARE
== END 2021-12-15 12:20 | disposition home or self-care (01) ==
LOC: EC 15:55 → 3SCARD 17:34
PROVIDERS: ADMIT Internal Medicine; ATTEND Internal Medicine
DX: I48.92 Unspecified atrial flutter (principal); U07.1 COVID-19; N17.9 Acute kidney failure, unspecified; E11.65 Type 2 diabetes mellitus with hyperglycemia; E86.1 Hypovolemia; E87.1 Hypo-osmolality and hyponatremia; E83.42 Hypomagnesemia; J84.10 Pulmonary fibrosis, unspecified; J44.9 Chronic obstructive pulmonary disease, unspecified; I10 Essential (primary) hypertension; E78.5 Hyperlipidemia, unspecified; Z20.822 Contact with and (suspected) exposure to COVID-19; Z79.84 Long term (current) use of oral hypoglycemic drugs; Z79.899 Other long term (current) drug therapy; Z88.5 Allergy status to narcotic agent; Z87.891 Personal history of nicotine dependence; Z83.3 Family history of diabetes mellitus
CPT/HCPCS: 96376 ×3; 96361 ×3; 96365; 96372; 96375; 99285; 36415; 93005; 93306; 84439; 84481; 80053; 80048 ×2; 82728; 83605; 83615 ×2; 83735; 84443; 84484; 85025 ×3; 85610; 85730; 86140 ×2; 83036; 84145; 87635 ×2; 71045; G0378 ×5; U0003; U0005; J2930 ×3; J1650; J3475; J7512 ×2

== ENCOUNTER → 2024-05-11 | Outpatient (CLI) | payer MEDICARE, BC ==
--- NOTE | 2024-05-11 08:15 | CT ---
EXAMINATION TYPE: CT chest wo con DATE OF EXAM: 05/11/2024 COMPARISON: NONE HISTORY: COPD CT DLP: 311.8 mGycm. Automated Exposure Control for Dose Reduction was Utilized. TECHNIQUE: CT scan of the thorax is performed without IV contrast. FINDINGS: LUNGS: Moderate underlying emphysematous changes are seen greatest in the upper lungs. No suspicious focal consolidation. There are a few scattered calcified left-sided nodules or benign granulomas. No greater than 6 mm noncalcified nodules. No pleural effusion or pneumothorax seen bilaterally. MEDIASTINUM: Lack of IV contrast is noted to limit evaluation for mediastinal and especially hilar ad enopathy. There are calcified left hilar and pericarinal lymph nodes. No cardiomegaly or pericardia l effusion is seen. Mild to moderate three-vessel coronary artery calcification is present. OTHER: Occasional punctate calcifications throughout the spleen. There is S-shaped scoliosis with mul tilevel spurring throughout the thoracic spine. IMPRESSION: Moderate emphysematous change and evidence of old granulomatous disease. No suspicious ac [place] pulmonary process. [facility], , 05/11/2024 8:13 AM
== END | disposition home or self-care (01) ==
LOC: RADCTMAIN 07:20
PROVIDERS: ATTEND Family Medicine
DX: J43.9 Emphysema, unspecified (principal); Z87.891 Personal history of nicotine dependence
CPT/HCPCS: 71250